=== PATIENT | female | born 1990 | race Caucasian/White ===

== ENCOUNTER 2020-04-27 07:42 | Outpatient (CLI) | payer SELFPAY ==
[2020-05-01 15:35] LABS: SARS-CoV-2 RNA Undetected (Undetected); SARS-CoV-2 Specimen Source Nasopharynx
== END 2020-04-27 08:02 ==
PROVIDERS: PCP Naturopath; Visit Provider Naturopath
DX: Z11.59 Encounter for screening for other viral diseases (principal)
CPT/HCPCS: U0003

== ENCOUNTER 2021-06-21 02:46 | Outpatient (CLI) | payer SELFPAY ==
[2021-06-21 12:12] LABS: Abs Immature Grans 0.01 10^3/uL (0.0-0.06); Absolute Basophil Count 0.03 10^3/uL (0.0-0.2); Absolute Eosinophil Count 0.04 10^3/uL (0.0-0.7); Absolute Lymphocyte Count 1.42 10^3/uL (1.2-3.4); Absolute Monocyte Count 0.31 10^3/uL (0.1-0.8); Absolute Neutrophil Count 2.55 10^3/uL (1.2-6.7); Basophils % 0.7; Eosinophils % 0.9; HCT 42.4 % (36.0-46.0); HGB 14.1 g/dL (11.2-15.7); Immature Grans % 0.2; Lymphocytes % 32.6; MCH 29.5 pg (27.0-33.0); MCHC 33.3 % (32.0-36.0); MCV 88.7 fL (80-95); MPV 9.5 fL (8.0-11.0); Monocytes % 7.1; Neutrophils % 58.5; Nucleated RBC 0 %; Platelet Count 282 10^3/uL (130-400); RBC 4.78 10^6/uL (3.93-5.22); RDW 12.2 % (11.7-14.6); RDW-SD 40.2 fL; WBC 4.36 10^3/uL (4.4-10.8)
[2021-06-21 12:22] LABS: ESR 1 mm/hr (0-20)
[2021-06-21 14:46] LABS: ALT 22 U/L (14-59); AST 15 U/L (15-37); Albumin 4.3 g/dL (3.4-5.0); Alkaline Phosphatase 42 U/L (46-116); Anion Gap 8.3 mmol/L (3-11); BUN 13 mg/dL (7-18); Bilirubin, Total 0.6 mg/dL (0.2-1.0); CO2 25.7 mmol/L (21.0-32.0); CREATININE 0.9 mg/dL (0.55-1.02); Calcium 9.2 mg/dL (8.5-10.1); Chloride 105 mmol/L (98-107); Glucose 65 mg/dL (74-106); PHOSPHORUS 3.6 mg/dL (2.6-4.7); Potassium 4.1 mmol/L (3.5-5.1); Sodium 139 mmol/L (136-145); Total Protein 7.9 g/dL (6.4-8.2)
[2021-06-21 14:54] LABS: GGT 37 U/L (5-55)
[2021-06-21 21:47] LABS: Ionized Calcium 1.11 mmol/L (1.12-1.32)
[2021-06-24 02:40] LABS: Vitamin D 25 Total 34.1 ng/mL (30-100)
[2021-06-24 09:12] LABS: Parathyroid Hormone,Intact 49 pg/mL (19-88)
== END 2021-06-21 02:47 | disposition home or self-care (01) ==
LOC: LBO 02:47
PROVIDERS: PCP Naturopath; Visit Provider Naturopath
DX: E55.9 Vitamin D deficiency, unspecified (principal); M25.511 Pain in right shoulder; E83.52 Hypercalcemia; R35.0 Frequency of micturition
CPT/HCPCS: 36415; 80053; 82306; 85652; 82330; 82977; 83970; 84100; 85025

== ENCOUNTER 2021-06-28 02:53 | Outpatient (CLI) | payer SELFPAY ==
[2021-06-28 12:17] LABS: Amylase 81 U/L (25-115); Lipase 143 U/L (73-393)
== END 2021-06-28 02:54 | disposition home or self-care (01) ==
LOC: LBO 02:53
PROVIDERS: PCP Naturopath; Visit Provider Naturopath
DX: R10.13 Epigastric pain (principal)
CPT/HCPCS: 36415; 83690; 82150

== ENCOUNTER 2021-07-04 08:49 | Outpatient (REF) | payer SELFPAY ==
[2021-07-04 19:18] LABS: Bilirubin Negative (Negative); Blood Negative (Negative); Clarity Clear (Clear); Glucose Negative (Negative); Ketones 15 mg/dL (Negative); Leukocyte Esterase Negative (Negative); Nitrite Negative (Negative); Specific Gravity 1.025 (1.005-1.025); Urobilinogen 0.2 EU/dL (Up TO 0.2)
== END 2021-07-04 08:50 | disposition home or self-care (01) ==
LOC: LBN 08:49
PROVIDERS: PCP Naturopath; Visit Provider Naturopath
DX: R35.0 Frequency of micturition (principal)
CPT/HCPCS: 81003

== ENCOUNTER 2022-04-23 08:44 | Emergency (ER) | payer BC, SELFPAY ==
--- OUTSIDE RECORDS SUMMARY | 2022-04-23 08:49 | XMS_ITS ---
:1990 External Reference #:[id number] Author Care Team Providers Name Role Phone Sue Wood Primary Care Provider Unavailable Allergies Code Code System Name Reaction Severity Status Onset Sulfa (Sulfonamide Antibiotics) Hives Severe Active ? Medications None recorded. Problems Name Status Onset Date Source ? Vitamin D Deficiency Active 06/26/2021 ? Epigastric Pain Active 06/26/2021 ? Procedures Date Name Performed by ? 02/05/2016 Echocardiogram Xray [facility] [address] [facility], [place] [address] ([address]) 02/05/2016 Exercise Stress Test Xray [facility] [facility] [place] [address] (Work Place) 04/02/2016 Exercise Stress Test Xray [facility] [facility] [place] [address] (Work Place) 04/02/2016 US, Echocardiogram Xray [facility] [facility] [place] [address] (Work Place) 06/25/2021 US, Abdomen, Complete Xray [facility] [facility] [place] [address] (Work Place) Results Lab Results None recorded. Past Encounters 07/17/2021 Epigastric Pain; Thoracic Back Pain Sue Wood, ND: [address] [facility] [place] [address], Ph. [phone] 06/25/2021 Epigastric Pain; Vitamin D Deficiency Sue Wood ND: [address] [facility] [place] [address], Ph. [phone] 06/18/2021 Increased Frequency of Urination; Pain R adiating to Right Shoulder; Hypercalcemia; Vitamin D Deficiency Sue Wood ND: [address] [facility] [place] [facility] [place] [address], Ph. [phone] Social History Tobacco Smoking Status Never Smoker Vaccine List Vaccine Type DTaP 1990 MMR 1990 polio, unspecified formulation 1990 Plan of Care Patient Instructions 1. leaky gut - 1/2 scoop/serving 2 xday for a whole container add flax seed powder- 2 .similase- 1 with complex snack or maricarmen ls 3. you will take ther-biotic next- refri gerate- 1 cap 2xday take with leaky gut when finish reorder megaspores! 4. Dr. Jae Alvarez PT- for stomach and back issues- would like to hear his assessment- get on waiting list 5. If discomfort persists after 2 weeks on this protocol- MAke APPT to discuss!!!! 1. d-mulsion 6 drops for 6 weeks and re test- 2.continue with probiotics- alternate between 3. similase 1 cap with meals- 1. megasporebiotics- follow bottle inst ructions 2. keep log- of symptoms 3. ua and bloodwork orders sent to [facility] Reminders Provider Appointments None recorded. ? ? Lab None recorded. ? ? Referral None recorded. ? ? Procedures None recorded. ? ? Surgeries None recorded. ? ? Imaging None recorded. ? ? Vitals 06/25/2021 01:45PM ESTABLISHED PATIENT 45 Weight Blood Pressure 109 lbs 94/60 mm[Hg] 10/20/2019 11:30AM ESTABLISHED PATIENT 15 Height Weight BMI Blood Pressure 5 ft 2 in 111 lbs 3.2 oz 20.3 kg/m2 108/60 mm[Hg] 06/18/2016 09:00AM ESTABLISHED PATIENT 30 Blood Pressure 98/68 mm[Hg] 02/05/2016 04:00PM NEW PATIENT 89 Weight Blood Pressure 114 lbs 16 oz 110/76 mm[Hg]
--- OUTSIDE RECORDS SUMMARY | 2022-04-23 08:49 | XMS_ITS | Encounter Summary ---
:1990 Author Organization [facility] Address [address] [place] [address] Care Team Providers Name Role Phone Unknown, Provider Primary Care Provider Encounter Details Date Type Department Care Team Description 06/21/2021 Lab Requisition [facility] Outr Resulting Lab, Pathology & Laboratory Provider [facility] [address] [place] [address] Social History Tobacco Use Types Packs/Day Years Used Date Never Assessed Sex Assigned at Date Recorded Not on file documented as of this encounter Plan of Treatment Not on filedocumented as of this encounter Procedures Procedure Name Priority Date/Time Associated Diagnosis Comme nts HOLD GREEN TOP Today 06/21/2021 12:05 EDT Resul ts for this procedure are i n the results section. CALCIUM, IONIZED Today 06/21/2021 12:05 EDT Res ults for this procedure are i n the results section. documented in this encounter Results HOLD GREEN TOP (06/21/2021 12:05 EDT) Pathologist Sig nature Hold Hold [facility] Specimen Blood - Venous blood (substance) Performing Organization Address [facility] Phon e Number [facility] [address] [place] [address] SERVICES (ABNORMAL) CALCIUM, IONIZED (06/21/2021 12:05 EDT) Calcium, Ionized 1.11 (L)Comment: 1.12 - 1.32 [facility] Testing performed mmol/L LABORATORY on heparinized SERVICES plasma. Results may be biased 5% lower than that of whole blood. 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
--- OUTSIDE RECORDS SUMMARY | 2022-04-23 08:49 | XMS_ITS | Encounter Summary ---
:1990 Author Organization [facility] Address [address] [place] [address] Care Team Providers Name Role Phone Unknown, Provider Primary Care Provider Encounter Details Date Type Department Care Team Description 06/22/2021 Lab Requisition [facility] Outr Resulting Lab, Pathology & Laboratory Provider [facility] [address] [place] [address] Social History Tobacco Use Types Packs/Day Years Used Date Never Assessed Sex Assigned at Date Recorded Not on file documented as of this encounter Plan of Treatment Not on filedocumented as of this encounter Procedures Procedure Name Priority Date/Time Associated Diagnosis Comme nts PTH INTACT Routine 06/21/2021 12:05 EDT Results for this procedure are i n the results section . documented in this encounter Results PTH INTACT (06/21/2021 12:05 EDT) Pathologist Sig nature Intact PTH 49 19 - 88 pg/mL [facility] SERVICES Specimen Blood - Venous blood (substance) Performing Organization Address City/State/ZIP Code Phon e Number [facility] [address] [place] [address] SERVICES documented in this encounter Visit Diagnoses Not on filedocumented in this encounter Care Teams Woven Label Designer Relationship Specialty Start Date End Date Unknown, Provider, PCP - General 05/16/16 documented as of this encounter
[2022-04-23 09:02] VITALS: BP 134/70; PULSE 100; RESP 14; TEMP 37.2; O2SAT 99
--- NOTE | 2022-04-23 09:48 | ED.GENADUL_ITS ---
Discharge Plan Disposition Patient Disposition: HOME Condition: Stable Discharge Details Clinical Impression: Colitis Primary Care Provider: Sue Wood ED Provider: Macy Dwyer Home Meds and New Rx's Prescriptions: New azithromycin 500 mg tablet 500 mg PO DAILY 3 Days Qty: 3 0RF metoclopramide HCl [Reglan] 10 mg tablet 10 mg PO Q6H PRNQty: 10 0RF oxycodone 5 mg capsule 5 mg PO Q8H PRNQty: 7 0RF potassium chloride 20 mEq tablet extended release 20 meq PO DAILY 5 Days Qty: 5 0RF Discharge Instructions Additional Instructions: You have colitis, with persistent symptoms you will likely need a colonoscopy, take the azithromycin as prescribed Take the Reglan as needed for nausea and vomiting Probiotic daily Oxycodone sparingly, this medication is addictive Take your potassium as prescribed Clear liquid diet until your symptoms improved Please return immediately should you have difficulty tolerating p.o., uncontrolled or worsening pain, persistent or worsening fever Follow-up with PCP in 24 to 48 hours for reassessment Referrals: Sue Wood [Primary Care Provider] - 1 day Discharge Data Discharge Date/Time-TO BE ENTERED AT DEPARTURE: 04/23/22 14:32 Medical Decision Making Mild hyponatremia, mild hypokalemia, supplemented with potassium No leukocytosis Colitis noted on CT scan Placed on antibiotics Stool culture pending Will need close outpatient reassessment Given small amount of opiate analgesia, antiemetics, and encouraged regular fluid hydration Potassium supplementation for home Return precautions discussed and patient expressed understanding Discharged home in stable condition with stable vital Medical Records Medical records reviewed: Yes I reviewed the patient's medical records. Lab Data Lab results reviewed: Yes I reviewed the patient's lab results. HPI General Date/Time Provider Initiated Documentation: 04/23/22 08:55 . HPI Narrative: This 32-year-old female presents with report of abdominal pain yesterday. She states that fever and diarrhea with a temp of 101 occurred yesterday afternoon. She had a small amount of blood in her stool. She denies any chest pain or shortness of breath. She denies any dizziness or weakness. She denies any vomiting or nausea. She denies history of similar symptoms in the past. She denies any recent antibiotic use. She utilizes a gluten-free diet by denies formally being tested for celiac disease. She denies chance of . Check a COVID test yesterday that was negative. Denies any urinary symptoms. Related Data Home Medications Medication Instructions Recorded Confirmed azithromycin 500 mg tablet 500 mg PO DAILY 3 days #3 tabs 04/23/22 metoclopramide HCl 10 mg tablet 10 mg PO Q6H PRN #10 tabs 04/23/22 (Reglan) oxycodone 5 mg capsule 5 mg PO Q8H PRN #7 caps 04/23/22 potassium chloride 20 mEq 20 meq PO DAILY 5 days #5 tabs 04/23/22 tablet,extended release Previous Rx's Medication Instructions Recorded azithromycin 500 mg tablet 500 mg PO DAILY 3 days #3 tabs 04/23/22 metoclopramide HCl 10 mg tablet 10 mg PO Q6H PRN #10 tabs 04/23/22 (Reglan) oxycodone 5 mg capsule 5 mg PO Q8H PRN #7 caps 04/23/22 potassium chloride 20 mEq 20 meq PO DAILY 5 days #5 tabs 04/23/22 tablet,extended release Allergies Allergy/AdvReac Type Severity Reaction Status Date / Time Sulfa (Sulfonamide Allergy Hives Unverified 04/23/22 09:05 Antibiotics) General Stated Complaint: Abd Prob HENRY: 3 Review of Systems All systems reviewed & are unremarkable except as noted in HPI and below PFSH All Active Problems (Updated 04/23/22 @ 13:44 by ADRIAN Bocanegra) Colitis (Acute) Social History Smoking/Tobacco Use Status: Never Smoking risk assessment performed?: Yes Alcohol Intake: never Drug use: Never Substance use type: does not use Do you feel safe at home: Yes Do you feel safe in your relationship?: Yes Exam Const General: cooperative, comfortable and no acute distress HENMT Mouth: oral mucosae normal Eyes Other: no icterus Resp Effort & Inspection: normal respiratory effort Cardio Rate: regular rate GI Other: tenderness with palpation LUQ and LLQ, no rebound or guarding Skin General skin exam: no rashes or lesions noted Neuro General: patient alert and patient oriented x3 Extrem General: normal to inspection Other: distal pulses intact Course Vital Signs Vital signs: Vital Signs Temperature 37.2 C 04/23/22 09:02 Pulse 100 H 04/23/22 09:02 Respiratory Rate 14 04/23/22 09:02 Blood Pressure 134/70 04/23/22 09:02 Pulse Oximetry 99 07/20/22 09:02 Temperature 37.2 C 04/23/22 09:02 Temperature Source Temporal Artery Scan 04/23/22 09:02 Pulse 100 H 04/23/22 09:02 Respiratory Rate 14 04/23/22 09:02 Respiratory Effort Non-Labored 04/23/22 09:06 Blood Pressure 134/70 04/23/22 09:02 Blood Pressure Position Supine 04/23/22 09:02 Pulse Oximetry 99 04/23/22 09:02 Oxygen Delivery Method Room Air 04/23/22 09:02 Oxygen Flow Rate 0 04/23/22 09:02 Pain Level 4 04/23/22 09:02
[2022-04-23] MEDS: Normal Saline 1,000 ML 1000 ML IV (10:23)
[2022-04-23 10:28] LABS: Abs Immature Grans 0.02 10^3/uL (0.0-0.06); Absolute Basophil Count 0.02 10^3/uL (0.0-0.2); Absolute Monocyte Count 0.45 10^3/uL (0.1-0.8); Absolute Neutrophil Count 6.71 10^3/uL (1.2-6.7); Basophils % 0.3; HCT 45.5 % (36.0-46.0); HGB 15.2 g/dL (11.2-15.7); Immature Grans % 0.3; Lymphocytes % 8.9; MCH 29.1 pg (27.0-33.0); MCHC 33.4 % (32.0-36.0); MCV 87 fL (80-95); MPV 9.2 fL (8.0-11.0); Monocytes % 5.7; Neutrophils % 84.8; Platelet Count 308 10^3/uL (130-400); RBC 5.23 10^6/uL (3.93-5.22); RDW 12.1 % (11.7-14.6); RDW-SD 38.8 fL
[2022-04-23] MEDS: Metoclopramide 10 MG/2 ML VIAL 5 MG IVP (10:37)
[2022-04-23] MEDS: ACETAMINOPHEN 1,000 MG/100 ML BTL 400 MG IVPB (10:38)
[2022-04-23] MEDS: FAMOTIDINE 20 MG in Normal Saline 100 ML 400 MG IVPB (10:38)
[2022-04-23] MEDS: Normal Saline 100 ML (10:47)
[2022-04-23 10:48] LABS: ALT 21 U/L (14-59); AST 16 U/L (15-37); Albumin 4.1 g/dL (3.4-5.0); Alkaline Phosphatase 60 U/L (46-116); Anion Gap 10.8 mmol/L (3-11); BUN 9 mg/dL (7-18); Bilirubin, Total 0.5 mg/dL (0.2-1.0); CO2 26.2 mmol/L (21.0-32.0); CREATININE 0.7 mg/dL (0.55-1.02); Calcium 9.3 mg/dL (8.5-10.1); Chloride 98 mmol/L (98-107); Glucose 84 mg/dL (74-106); Lipase 83 U/L (73-393); Potassium 3.1 mmol/L (3.5-5.1); Sodium 135 mmol/L (136-145)
[2022-04-23] MEDS: MORPHine 4 MG/ML SYR IVP (11:09)
[2022-04-23 12:15] LABS: Bilirubin Negative (Negative); Blood Negative (Negative); Clarity Clear (Clear); Glucose Negative (Negative); Ketones 40 mg/dL (Negative); Leukocyte Esterase Negative (Negative); Nitrite Negative (Negative); Urobilinogen 0.2 EU/dL (Up TO 0.2)
--- NOTE | 2022-04-23 12:22 | DI.CT_ITS ---
Exam(s) CT ABDOMEN PELVIS W EXAM: CT ABDOMEN PELVIS W CLINICAL HISTORY: abdominal pain, mucous and blood in stool. TECHNIQUE: Imaging Protocol: Axial computed tomography images with coronal and sagittal reformatted images were created and reviewed CONTRAST MATERIAL: Intravenous: Omnipaque 350 Contrast volume:100 ml Oral: / no COMPARISON: No exams were available for comparison FINDINGS: ABDOMEN: Lung Bases: Normal where visualized. Liver: Normal density. No measurable mass. Gallbladder and biliary tract: No radiodense calculus or dilation. Pancreas: Normal density, no abnormal calcifications or inflammatory process. Stomach and small bowel : Unremarkable. No abnormal dilatation or visible wall thickening. Evaluation somewhat limited with out oral contrast and lack of intra-abdominal fat. Spleen: Normal. Kidneys: Normal size, contour and axis. No radiodense stones or obstructive uropathy. No masses seen. Adrenal glands: No masses seen. Abdominal Aorta: Abdominal portion non-dilated. PELVIS: Bladder: No gross wall thickening. No calculi.No focal mass. Colon: Limited evaluation without oral contrast and lack of intra-abdominal fat. Wall thickening of the cecum and ascending colon. The majority of the colon is decompressed. No obstruction . Appendix not definitely seen. Peritoneal cavity: No ascites, collection Bones: Within normal limits for age. Reproductive organs: Cyst left ovary 4.3 cm. Uterus retroflexed. Lymph nodes: Unremarkable. Impression: Abnormal wall thickening of the ascending colon, consistent with colitis. 4.3 centimeter left ovarian cyst. Results of this exam have been verbally communicated with emergency department provider. RADIATION DOSE DELIVERED: 583.64mGy.cm Total DLP DATA REPOSITORY: All CT scans at this facility are submitted to the National Radiology Data Registry (NRDR) Dose Index Registry (DIR) with the [employer] ([employer]). RADIATION OPTIMIZATION: All CT scans at this facility use at least one of these dose optimization te chniques: automated exposure control; mA and/or kV adjustment per patient size (includes targeted exa ms where dose is matched to clinical indication); or iterative reconstruction.
[2022-04-23] MEDS: Omnipaque 350 MG/ML 100 ML BTL IJ (13:07)
[2022-04-23] MEDS: oxyCODONE 5 MG TAB PO (14:21)
[2022-04-23] MEDS: Potassium Chloride 20 MEQ TABCR 40 MEQ PO (14:21)
[2022-04-24 11:15] LABS: Salmonella PCR Negative (Negative); Shiga Toxin PCR Negative (Negative); Shigella/Enteroinvasive Ecoli Negative (Negative)
[2022-04-24 16:00] LABS: Campylobacter PCR Positive (Negative)
== END 2022-04-23 14:32 | disposition home or self-care (01) ==
PROVIDERS: Emergency Provider Physician Assistant; PCP Naturopath
DX: K52.9 Noninfective gastroenteritis and colitis, unspecified (principal); E87.1 Hypo-osmolality and hyponatremia; E87.6 Hypokalemia
CPT/HCPCS: 36415; 80053; 81025; 83690; 87505; 96361; 96374; 96375; 99285; 74177; 81003; 83735; 85025; 99284; J0131; J2270; J2765; J3490